=== PATIENT | female | born 1980 | race American Indian/Alaskan Native ===

== ENCOUNTER 2018-04-16 15:46 | Outpatient (CLI) | payer BC ==
--- NOTE | 2018-04-16 16:46 | Ultrasound Report ---
RIGHT AXILLARY ULTRASOUND: 04/16/18 16:00:00 CLINICAL: Right axillary mass. No comparison. FINDINGS: Ultrasound of the right axilla demonstrated a large volume of fat which accounts for the perception of a mass. However, the there is no difference when compared to the left axilla. A single right axillary lymph node with central fat a benign morphology measures 2.6 x 1.0 x 0.6 cm. No other mass, cyst or fluid collection. No skin thickening. IMPRESSION: A preponderance of fat in the right axilla and a single right axillary lymph node with benign morphology. Recommend clinical followup.
== END 2018-04-16 15:47 | disposition home or self-care (01) ==
LOC: SPVWC 15:46
PROVIDERS: ATTEND Internal Medicine
DX: L98.9 Disorder of the skin and subcutaneous tissue, unspecified (principal); M19.90 Unspecified osteoarthritis, unspecified site

== ENCOUNTER 2018-10-22 09:07 | Outpatient (CLI) | payer BC ==
--- NOTE | 2018-10-22 10:37 | Ultrasound Report ---
BILATERAL DIGITAL DIAGNOSTIC MAMMOGRAM WITH CAD -- 10/22/2018 BILATERAL LIMITED BREAST ULTRASOUND INDICATION: Right axillary tenderness TECHNIQUE: Digital bilateral mammographic imaging was performed. Limited ultrasound was performed. T his examination was interpreted with the benefit of Computer-Aided Detection (CAD) analysis. COMPARISON: None, baseline FINDINGS: Breast Density: There are scattered areas of fibroglandular density. There is no evidence of dominant mass, suspicious calcifications or architectural distortion in the r ight breast. No obvious abnormalities seen in the area of tenderness in the right axilla. In the left breast anterior to mid level, 12:00 position approximately 5 6 cm superior to the nipple, an ovoid b enign-appearing 9 mm nodule is seen of unknown stability. Ultrasound Findings: Targeted ultrasound evaluation was performed of the area of interest. In the r ight axilla no abnormalities are noted tenderness. In the area of the left nodule at 12:00, 6 cm from the nipple, a benign-appearing 8 mm solid nodule is seen without vascularity or significant shadowin g and with smoothly marginated well-defined borders. This probably is a small fibroadenoma. Stability is unknown as we have no prior studies available. IMPRESSION: 1. No abnormalities are seen to account for the reported tenderness in the right axillary region. Cli nical correlation is suggested. 2. Benign-appearing probable fibroadenoma in the left breast. Recommend ultrasound follow-up in 6 mon ths. BI-RADS Category 3: Probably Benign. A "normal" or negative report should not discourage follow up or biopsy of a clinically significant f inding. A written summary of these findings will be mailed to the patient. The patient will be entered into a mammography reporting system which will generate a reminder letter for the patient's next appointmen t at the appropriate interval. According to the [employer], yearly mammograms are recommended starting at age 40 and continuing as long as a woman is in good health. Breast MRI is recommended for women with an raina roximately 20-25% or greater lifetime risk of breast cancer, including women with a strong family his tory of breast or ovarian cancer and women who have been treated for Hodgkin's disease. Signer Name: Hugh Gregg MD Signed: 10/22/2018 10:32 AM Workstation Name: [id number]
== END 2018-10-22 09:08 | disposition home or self-care (01) ==
LOC: SPVWC 09:07
PROVIDERS: ATTEND Surgery
DX: N64.4 Mastodynia (principal)
CPT/HCPCS: 77066

== ENCOUNTER 2019-02-04 10:40 | Outpatient (CLI) | payer BC ==
[2019-02-04 11:26] LABS: Basophils % (Auto) 0.4 % (0.0-1.8); Eosinophils # (Auto) 0.1 K/mm3 (0.0-0.4); Eosinophils % (Auto) 1.8 % (0.0-4.3); Hematocrit 39.8 % (30.3-42.9); Hemoglobin 12.7 gm/dl (10.1-14.3); Lymphocytes # (Auto) 1.6 K/mm3 (1.2-5.4); Lymphocytes % (Auto) 26.9 % (13.4-35.0); Mean Corpuscular HGB Conc 32 % (30-34); Mean Corpuscular Volume 88 fl (79-97); Monocytes # (Auto) 0.3 K/mm3 (0.0-0.8); Monocytes % (Auto) 4.5 % (0.0-7.3); Platelet Count 238 K/mm3 (140-440); Red Blood Count 4.54 M/mm3 (3.65-5.03); Red Cell Distribution Width 13.7 % (13.2-15.2)
[2019-02-04 11:31] LABS: Bilirubin,Urine NEG (Negative); Blood,Urine MOD (Negative); Color,Urine Yellow (Yellow); Protein,Urine <15 mg/dL mg/dL (Negative); Urobilinogen,Urine < 2.0 mg/dL (<2.0); WBC,Urine < 1.0 /HPF (0.0-6.0)
[2019-02-04 11:55] LABS: Alanine Aminotransferase 12 units/L (7-56); Albumin 4.3 g/dL (3.9-5); BUN/Creatinine Ratio 14; Blood Urea Nitrogen 13 mg/dL (7-17); Calcium 9.2 mg/dL (8.4-10.2); Chol/HDL Ratio 2.51 %; HDL Cholesterol 66 mg/dL (40-59); Hemolysis Index 2; LDL Cholesterol,Direct 102 mg/dL (50-130)
[2019-02-07 13:04] LABS: Vitamin D, 25-OH, D2 <4 ng/mL
== END 2019-02-04 10:41 | disposition home or self-care (01) ==
LOC: LAB 10:40
PROVIDERS: ATTEND Internal Medicine
DX: Z00.01 Encounter for general adult medical examination with abnormal findings (principal); Z13.220 Encounter for screening for lipoid disorders; Z13.29 Encounter for screening for other suspected endocrine disorder; Z13.21 Encounter for screening for nutritional disorder; E66.9 Obesity, unspecified; E04.2 Nontoxic multinodular goiter; N39.0 Urinary tract infection, site not specified
CPT/HCPCS: 36415; 80053; 80061; 81001; 82306; 82607; 83036; 84443; 85025

== ENCOUNTER 2019-04-22 08:55 | Outpatient (CLI) | payer BC ==
--- NOTE | 2019-04-22 10:01 | Ultrasound Report ---
LEFT BREAST ULTRASOUND HISTORY: 38-year-old for follow-up of a probably benign solid mass. COMPARISON: 10/22/2018 FINDINGS: Sonographic evaluation focused upon the 12:00 5 to 6 cm location of the left breast demonst rates a stable oval solid smooth shadowing mass at 12:00 5 cm from the nipple. It measures 8 x 5 x 8 mm. IMPRESSION: A stable probably benign 8 mm mass at 12:00 5 cm from the nipple. Sonographic features suggest benign fibroadenoma. Recommend an additional 6 month follow-up targeted ultrasound of the left breast. BIRADS 3: Probably benign. Signer Name: Roberto Hess MD Signed: 04/22/2019 9:57 AM Workstation Name: [id number]
== END 2019-04-22 08:56 | disposition home or self-care (01) ==
LOC: SPVWC 08:55
PROVIDERS: ATTEND Surgery
DX: N63.42 Unspecified lump in left breast, subareolar (principal)

== ENCOUNTER 2019-10-21 09:03 | Outpatient (CLI) | payer BC, OTHER ==
--- NOTE | 2019-10-21 09:58 | Mammography Report ---
BILATERAL DIGITAL SCREENING MAMMOGRAM WITH CAD HISTORY: SCREENING TECHNIQUE: Routine digital mammographic imaging performed. This examination was interpreted with prasanth ngo of Computer-aided Detection analysis. COMPARISON: 04/22/2018, 10/22/2018. FINDINGS: Breast Density: scattered fibroglandular appearance of the breast tissue. Digital CC and MLO views demonstrate stable left superior breast circumscribed oval mass. No new or suspicious findings within either breast. IMPRESSION: Stable left superior breast circumscribed oval mass. A targeted ultrasound will be performed the same day for follow-up evaluation (please see that report for findings regarding this mass). No new or lainez spicious findings within either breast. BIRADS 0-Incomplete: Needs additional imaging evaluation NOTE: WE WILL RECALL THE PATIENT FOR THIS ADDITIONAL EVALUATION. FURTHER INFORMATION: According to the [employer], yearly mammograms are recommend ed starting at age 40 and continuing as long as a woman is in good health. Clinical Breast Exams shou ld be part of a periodic health exam-about every 3 years for women in their 20s and 30s and every yea r for women 40 and over. Breast self exam is an option for women starting in their 20s. Any breast ch ayde noted on a breast self exam should be reported promptly to the patient's healthcare provider. Br east MRI is recommended for women with an approximately 20-25% or greater lifetime risk of breast can cer, including women with a strong family history of breast or ovarian cancer and women who have been treated for Hodgkin's disease. A negative Mammography report should not discourage follow up or biopsy of a clinically significant f inding and/or abnormality. Dense breast tissue may obscure small neoplasms. The patient will be entered into a reminder system with a target due date for the next screening mamm ogram. Signer Name: Jose Alejandro Galicia MD Signed: 10/21/2019 9:54 AM Workstation Name: [id number]
--- NOTE | 2019-10-21 09:59 | Ultrasound Report ---
LEFT BREAST ULTRASOUND INDICATION: Follow-up evaluation of finding noted previously in the left breast. COMPARISON: 04/22/2018, 10/22/2018. FINDINGS: A targeted ultrasound focused in the left breast at the 12:00 position, 5 cm from the nipple, was per formed to evaluate site of a previously noted finding. There is a circumscribed oval solid hypoechoic 8 x 8 x 5 mm mass. This is not significantly changed from prior exam and is favored to represent a f ibroadenoma. No interval detrimental change or new suspicious finding is identified. IMPRESSION: No significant change in probably benign left breast mass at the 12:00 position (favored to represent a fibroadenoma). A follow-up ultrasound in one year is recommended when the patient returns for her annual bilateral mammogram. At that time, close to 2 years imaging will have been established for thi s mass. BI-RADS Category 3: Probably Benign. A "normal" or negative report should not discourage follow up or biopsy of a clinically significant f inding. A written summary of these findings will be mailed to the patient. FURTHER INFORMATION: According to the [employer], yearly mammograms are recommend ed starting at age 40 and continuing as long as a woman is in good health. Breast MRI is recommended for women with an approximately 20-25% or greater lifetime risk of breast cancer, including women wi th a strong family history of breast or ovarian cancer and women who have been treated for Hodgkin's disease. Signer Name: Jose Alejandro Galicia MD Signed: 10/21/2019 9:55 AM Workstation Name: [id number]
== END 2019-10-21 09:04 | disposition home or self-care (01) ==
LOC: SPVWC 09:03
PROVIDERS: ATTEND Surgery
DX: Z12.31 Encounter for screening mammogram for malignant neoplasm of breast (principal)
CPT/HCPCS: 77067

== ENCOUNTER 2019-11-04 15:02 | Outpatient (CLI) | payer OTHER ==
--- NOTE | 2019-11-04 15:41 | XRay Report ---
RIGHT HAND 3 VIEWS INDICATION: PAIN IN RIGHT HAND. COMPARISON: No relevant prior imaging study available. FINDINGS: There is dislocation at the thumb CMC joint. No acute fracture is seen. No foreign bodies. No focal s oft tissue swelling. IMPRESSION: 1. Thumb CMC joint dislocation. COMMUNICATION: Time of Communication: 2:37 PM Central Licensed Practitioner Receiving Report: Dr. Rios Signer Name: Brad Lomeli MD Signed: 11/04/2019 3:37 PM Workstation Name: [id number]
== END 2019-11-04 15:03 | disposition home or self-care (01) ==
LOC: XRAY 15:02
PROVIDERS: ATTEND Internal Medicine
DX: S63.044A Dislocation of carpometacarpal joint of right thumb, initial encounter (principal); X58.XXXA Exposure to other specified factors, initial encounter; Y93.89 Activity, other specified; Y92.89 Other specified places as the place of occurrence of the external cause; Y99.8 Other external cause status

== ENCOUNTER 2020-08-06 09:30 | Outpatient (CLI) | payer OTHER ==
[2020-08-06 10:20] LABS: Alanine Aminotransferase 29 units/L (7-56); Albumin 3.9 g/dL (3.9-5); BUN/Creatinine Ratio 19; Blood Urea Nitrogen 15 mg/dL (7-17); Calcium 8.4 mg/dL (8.4-10.2); Chol/HDL Ratio 2.27 %; HDL Cholesterol 72 mg/dL (40-59); Hemolysis Index 11; Iron 51 ug/dL (37-170); LDL Cholesterol,Direct 91 mg/dL (50-130)
[2020-08-06 10:20] LABS: Bacteria,Urine 1+ /HPF (Negative); Bilirubin,Urine NEG (Negative); Blood,Urine NEG (Negative); Color,Urine Yellow (Yellow); Protein,Urine <15 mg/dL mg/dL (Negative); Urobilinogen,Urine < 2.0 mg/dL (<2.0)
[2020-08-10 06:04] LABS: Vitamin D, 25-OH, D2 <4 ng/mL
== END 2020-08-06 09:31 | disposition home or self-care (01) ==
LOC: LAB 09:30
PROVIDERS: ATTEND Internal Medicine
DX: Z00.00 Encounter for general adult medical examination without abnormal findings (principal); Z13.220 Encounter for screening for lipoid disorders; Z13.1 Encounter for screening for diabetes mellitus; E04.2 Nontoxic multinodular goiter; E55.9 Vitamin D deficiency, unspecified; N39.0 Urinary tract infection, site not specified; D51.9 Vitamin B12 deficiency anemia, unspecified; D64.9 Anemia, unspecified
CPT/HCPCS: 36415; 80053; 80061; 81001; 82306; 82607; 82728; 83036; 83540; 84436; 84443

== ENCOUNTER 2020-08-24 15:42 | Outpatient (CLI) | payer OTHER ==
[2020-08-24 16:34] LABS: Basophils % (Auto) 0.3 % (0.0-1.8); Eosinophils # (Auto) 0.1 K/mm3 (0.0-0.4); Eosinophils % (Auto) 0.8 % (0.0-4.3); Hemoglobin 11.8 gm/dl (10.1-14.3); Lymphocytes # (Auto) 0.5 K/mm3 (1.2-5.4); Lymphocytes % (Auto) 6.2 % (13.4-35.0); Mean Corpuscular HGB Conc 33 % (30-34); Mean Corpuscular Volume 88 fl (79-97); Monocytes # (Auto) 0.5 K/mm3 (0.0-0.8); Monocytes % (Auto) 5.4 % (0.0-7.3); Platelet Count 192 K/mm3 (140-440); Red Cell Distribution Width 13.9 % (13.2-15.2)
== END 2020-08-24 15:43 | disposition home or self-care (01) ==
LOC: LAB 15:42
PROVIDERS: ATTEND Internal Medicine
DX: D64.9 Anemia, unspecified (principal)
CPT/HCPCS: 36415; 85025

== ENCOUNTER 2020-10-26 09:40 | Outpatient (CLI) | payer OTHER ==
--- NOTE | 2020-10-28 08:55 | Mammography Report ---
DIGITAL SCREENING MAMMOGRAM WITH TOMOSYNTHESIS WITH CAD, 10/27/2020 CLINICAL INFORMATION / INDICATION: Screening TECHNIQUE: Digital bilateral 2D and 3D mammography with tomosynthesis was obtained in the craniocaud al and mediolateral oblique projections. Computer-Aided Detection (CAD) analysis was used for interp retation of this study. COMPARISON: 01/30/2020 FINDINGS: Breast Density: There are scattered areas of fibroglandular density. No dominant mass, suspicious calcifications, or architectural distortion in either breast. Mild nodularity is stable. IMPRESSION: No mammographic evidence of malignancy. Follow up recommendation: Routine yearly BI-RADS Category 2: Benign. A "normal" or negative report should not discourage follow up or biopsy of a clinically significant f inding. A written summary of these findings will be mailed to the patient. The patient will be entered into a mammography reporting system which will generate a reminder letter for the patient's next appointmen t at the appropriate interval. The [employer] recommends yearly mammograms starting at age 40 and continuing as l morteza as a woman is in good health. Breast MRI is recommended for women with an approximate 20-25% or greater lifetime risk of breast cancer, including women with a strong family history of breast or ova [place] cancer or who have been treated for Hodgkin's disease. Signer Name: Hugh Gregg MD Signed: 10/28/2020 8:51 AM Workstation Name: [email or web address]
== END 2020-10-26 09:41 | disposition home or self-care (01) ==
LOC: SPVWC 09:40
PROVIDERS: ATTEND Surgery
DX: Z12.31 Encounter for screening mammogram for malignant neoplasm of breast (principal)
CPT/HCPCS: 77063; 77067

== ENCOUNTER 2021-12-05 12:07 | Outpatient (CLI) | payer OTHER ==
[2021-12-05 12:40] LABS: Basophils % (Auto) 0.6 % (0.0-1.8); Eosinophils # (Auto) 0.1 K/mm3 (0.0-0.4); Eosinophils % (Auto) 1.5 % (0.0-4.3); Hematocrit 38.6 % (30.3-42.9); Hemoglobin 12.2 gm/dl (10.1-14.3); Lymphocytes # (Auto) 1.8 K/mm3 (1.2-5.4); Lymphocytes % (Auto) 26.6 % (13.4-35.0); Mean Corpuscular HGB Conc 32 % (30-34); Mean Corpuscular Volume 86 fl (79-97); Monocytes # (Auto) 0.4 K/mm3 (0.0-0.8); Monocytes % (Auto) 6.3 % (0.0-7.3); Platelet Count 247 K/mm3 (140-440); Red Blood Count 4.49 M/mm3 (3.65-5.03); Red Cell Distribution Width 14.4 % (13.2-15.2)
[2021-12-05 13:05] LABS: Alanine Aminotransferase 20 units/L (7-56); Albumin 4.5 g/dL (3.9-5); BUN/Creatinine Ratio 12; Blood Urea Nitrogen 12 mg/dL (7-17); Calcium 9.3 mg/dL (8.4-10.2); Chol/HDL Ratio 2.47 %; HDL Cholesterol 71 mg/dL (40-59); Hemolysis Index 3; LDL Cholesterol,Direct 97 mg/dL (50-130)
== END 2021-12-05 12:08 | disposition home or self-care (01) ==
LOC: LAB 12:07
PROVIDERS: ATTEND Internal Medicine
DX: Z00.00 Encounter for general adult medical examination without abnormal findings (principal); E04.2 Nontoxic multinodular goiter; E66.9 Obesity, unspecified; E55.9 Vitamin D deficiency, unspecified
CPT/HCPCS: 36415; 80053; 80061; 84436; 84443; 85025